=== PATIENT | female | born 1995 | race Caucasian/White ===

== ENCOUNTER 2020-07-01 20:35 | Emergency (ER) | payer OTHER ==
[~2020-07-01] VITALS: Ht 165.1 cm; Wt 62.6 kg
[2020-07-01] MEDS ORDERED: IBUPROFEN 600 MG TABLET ONE (21:45)
[2020-07-01 22:18] VITALS: BP 123/76
[2020-07-01] MEDS ORDERED: BIRTH CONTROL PILLS (22:24)
[2020-07-01] MEDS ORDERED: L.E.T SOLUTION TP ONE ×2 (22:29→22:30)
[2020-07-01] MEDS ORDERED: IBUPROFEN 200 MG TABLET PO ONE (22:30)
[2020-07-01] MEDS ORDERED: SILVER SULF. CRM 1% , 25GM ONE (22:35)
[2020-07-01] MEDS ORDERED: HYDROcodone/APAP 5/325 TABLET ONE (22:54)
[2020-07-01] MEDS ORDERED: HYDROcodone/APAP 5/325 TABLET PO ONE (23:00)
[2020-07-01] MEDS ORDERED: SILVER SULF. CRM 1% , 25GM TP ONE (23:00)
== END 2020-07-01 23:23 | disposition home or self-care (01) ==
LOC: ED 23:00
DX: T24.102A Burn of first degree of unspecified site of left lower limb, except ankle and foot, initial encounter (principal); T31.10 Burns involving 10-19% of body surface with 0% to 9% third degree burns; X19.XXXA Contact with other heat and hot substances, initial encounter; Y93.89 Activity, other specified; Y92.89 Other specified places as the place of occurrence of the external cause; Y99.8 Other external cause status
CPT/HCPCS: 16020; 99283